=== PATIENT | female | born 1950 | race Caucasian/White ===

== ENCOUNTER 2018-09-16 21:27 | Emergency (ER) | payer MEDICARE, OTHER ==
[2018-09-16] MEDS ORDERED: ASPIRIN 81 MG TABLET, CHEWABLE PO ONE (21:43)
--- NOTE | 2018-09-16 21:45 | ER Document Report ---
ED Medical Screen (RME) - General TRAVEL OUTSIDE OF THE [place] IN LAST 30 DAYS: No <SANYA AGUILERA - Last Filed: 09/16/18 21:43> <RAUL RAMIREZ - Last Filed: 09/16/18 23:37> - General Chief Complaint: Chest Pain Stated Complaint: CHEST PAIN Time Seen by Provider: 09/16/18 21:43 Notes: After dinner started with epigastric pain that moves into her chest. Dull pain now in the center of her chest, h/o a-fib and GERD. Unsure if this is reflux or "my heart." I have greeted and performed a rapid initial assessment of this patient. A comprehensive ED assessment and evaluation of the patient, analysis of test results and completion of the medical decision making process will be conducted by additional ED providers. (SANYA AGUILERA) - Vital signs Vitals: Temp Pulse Resp BP Pulse Ox 97.6 F 61 19 183/83 H 98 09/16/18 21:43 09/16/18 21:43 09/16/18 21:43 09/16/18 21:43 09/16/18 21:43 Course - Laboratory Result Diagrams: 09/16/18 21:55 09/16/18 21:55 <RAUL RAMIREZ - Last Filed: 09/16/18 23:37> - Vital Signs Vital signs: Temp Pulse Resp BP Pulse Ox 97.6 F 61 18 168/94 H 95 09/16/18 21:43 09/16/18 21:43 09/16/18 22:32 09/16/18 22:32 09/16/18 22:32 - Laboratory Laboratory results interpreted by me: 09/16/18 09/16/18 21:55 21:55 Hgb 11.9 L MCV 79 L MCH 26.1 L RDW 16.3 H Glucose 117 H - EKG Interpretation by Me Additional EKG results interpreted by me: 09/16/18 22:02 09/16/18 23:37 (RAUL RAMIREZ)
[2018-09-16 22:19] LABS: ABSOLUTE EOSINOPHILS # (AUTO) 0.2 10^3/uL (0.0-0.6); ABSOLUTE LYMPHOCYTES (AUTO) 1.7 10^3/uL (0.5-4.7); ABSOLUTE MONOCYTES (AUTO) 0.5 10^3/uL (0.1-1.4); ABSOLUTE NEUT (AUTO) 2.7 10^3/uL (1.7-8.2); BASOPHILS % (AUTO) 0.8 % (0-2); HEMOGLOBIN 11.9 g/dL (12.0-15.5); LYMPHOCYTES % (AUTO) 33.2 % (13-45); MEAN CORPUSCULAR HEMOGLOBIN 26.1 pg (27.0-33.4); MEAN CORPUSCULAR VOLUME 79 fl (80-97); MONOCYTES % (AUTO) 9.2 % (3-13); PLATELET COUNT 200 10^3/uL (150-450); RED BLOOD COUNT 4.55 10^6/uL (3.72-5.28); RED CELL DISTRIBUTION WIDTH 16.3 % (11.5-14.0); SEGMENTED NEUTROPHILS % (AUTO) 52.8 % (42-78); TOTAL CELLS COUNTED % (AUTO) 100 %; WHITE BLOOD COUNT 5.2 10^3/uL (4.0-10.5)
[2018-09-16 22:27] LABS: INTERNATIONAL RATION (INR) 1.04; PROTHROMBIN TIME 14.2 SEC (11.4-15.4)
[2018-09-16 22:35] LABS: ALANINE AMINOTRANSFERASE 27 U/L (9-52); ALBUMIN 3.8 g/dL (3.5-5.0); ALKALINE PHOSPHATASE 80 U/L (38-126); ANION GAP 9 (5-19); ASPARTATE AMINO TRANSFERASE 32 U/L (14-36); BILIRUBIN,DIRECT 0.2 mg/dL (0.0-0.4); BILIRUBIN,TOTAL 0.5 mg/dL (0.2-1.3); BLOOD UREA NITROGEN 13 mg/dL (7-20); CALCIUM 9.3 mg/dL (8.4-10.2); CARBON DIOXIDE 29 mmol/L (22-30); CHLORIDE 100 mmol/L (98-107); CREATINE KINASE 82 U/L (30-135); GLUCOSE 117 mg/dL (75-110); LIPASE 77.8 U/L (23-300); POTASSIUM 3.9 mmol/L (3.6-5.0); SODIUM 137.5 mmol/L (137-145); TOTAL PROTEIN 6.8 g/dL (6.3-8.2)
[2018-09-16 22:50] LABS: CREATINE KINASE MB 1.49 ng/mL (<4.55)
--- NOTE | 2018-09-16 22:55 | RADIOLOGY REPORT (SQ) ---
EXAM DESCRIPTION: XR CHEST 1 VIEW COMPLETED DATE/TME: 09/16/2018 21:43 CLINICAL HISTORY: 67 years Female, CP COMPARISON: None. NUMBER OF VIEWS/TECHNIQUE: 1/AP FINDINGS: Adequate lung volume, pulmonary vascular congestion, normal cardiac silhouette, and intact bony thorax. Atherosclerotic vascular disease. Upper abdominal clips. IMPRESSION: Pulmonary vascular congestion.
[2018-09-16 22:58] LABS: TROPONIN I < 0.012 ng/mL
--- NOTE | 2018-09-16 23:39 | ER Document Report ---
ED General - General Chief Complaint: Chest Pain Stated Complaint: CHEST PAIN Time Seen by Provider: 09/16/18 21:43 Notes: Patient 67-year-old female who presents with complaint of fullness and pressure type feeling in her epigastric region that occurred while she was eating spaghetti. She said she felt as if she had a belch and felt as if she could vomit and it would get rid of the pressure. She does have a history of gastric bypass surgery in the past. She said she came here and eventually the pain went away. She is currently pain-free and feels well. She does have a history atrial fibrillation. She is underwent several ablations. She also had a watchman procedure performed. She is no longer on anticoagulation. She did have a negative cardiac cath 2 years ago. No other complaints at this time. TRAVEL OUTSIDE OF THE [place] IN LAST 30 DAYS: No - Related Data Allergies/Adverse Reactions: cephalexin [From Keflex] Allergy (Verified 09/17/18 02:01) codeine Allergy (Verified 09/17/18 02:01) Penicillins Allergy (Verified 09/17/18 02:01) Sulfa (Sulfonamide Antibiotics) Allergy (Verified 09/17/18 02:01) Past Medical History - Social History Smoking Status: Never Smoker Frequency of alcohol use: None Drug Abuse: None Family History: Reviewed & Not Pertinent Patient has suicidal ideation: No Patient has homicidal ideation: No - Past Medical History Cardiac Medical History: Reports: Hx Atrial Fibrillation, Hx Hypertension Renal/ Medical History: Denies: Hx Peritoneal Dialysis GI Medical History: Reports: Hx Gastroesophageal Reflux Disease Musculoskeletal Medical History: Reports Hx Arthritis Psychiatric Medical History: Reports: Hx Depression Past Surgical History: Reports: Hx Breast Surgery - reduction, Hx Cardiac Catheterization - ablation x3; umbrella filter, Hx Cardiac Surgery, Hx Cholecystectomy, Hx Hysterectomy, Hx Orthopedic Surgery - bilat carpel tunnel; bilat knee replacement Review of Systems - Review of Systems Notes: My Normal Review Basic REVIEW OF SYSTEMS: CONSTITUTIONAL : Denies fever, chills, or sweats. Denies recent illness. CARDIOVASCULAR: Pressure over lower substernal and epigastric region. RESPIRATORY: Denies cough, cold, or chest congestion. Denies shortness of breath, difficulty breathing, or wheezing. GASTROINTESTINAL: Short over epigastric region.. Denies nausea, vomiting, or diarrhea. MUSCULOSKELETAL: Denies neck or back pain or joint pain or swelling. SKIN: Denies rash or skin lesions. NEUROLOGICAL: Denies altered mental status or loss of consciousness. Denies headache. Denies weakness or paralysis or loss of use of either side. Denies problems with gait or speech. Denies sensory or motor loss. ALL OTHER SYSTEMS REVIEWED AND NEGATIVE. Physical Exam - Vital signs Vitals: Temp Pulse Resp BP Pulse Ox 97.6 F 61 19 183/83 H 98 09/16/18 21:43 09/16/18 21:43 09/16/18 21:43 09/16/18 21:43 09/16/18 21:43 - Notes Notes: General Appearance: Well nourished, alert, cooperative, no acute distress, no obvious discomfort. Well-appearing. Vitals: reviewed, See vital signs table. Eyes: PERRL, EOMI, Conjuctiva clear Mouth: No decreasd moisture Lungs: No wheezing, No rales, No rhonci, No accessory muscle use, good air exchange bilaterally. Heart: Normal rate, Regular rythm, No murmur, no rub Abdomen: Normal BS, soft, No rigidity, No abdominal tenderness, No guarding, no rebound, Extremities: good pulses in all extremities, no swelling or tenderness in the extremities, no edema. Skin: warm, dry, appropriate color, no rash Neuro: speech clear, oriented x 3, normal affect, responds appropriately to questions. Course - Re-evaluation Re-evalutation: 09/17/18 02:36 Patient's history and pain sounds very consistent with that of indigestion. Despite this I still feel it is appropriate to do a workup looking her heart being that she does have T wave inversions on her EKG I do not have an old one to compare to. These inversions could be related to the multiple ablations that she has had performed on her heart. Patient is currently pain-free and a repeat EKG and is not changed whatsoever. I did troponin and delta troponin this is negative as well. Patient had negative cardiac cath 2 years ago. At this time I feel the patient is safe to be discharged home. I informed her to avoid spicy foods and fatty foods. She is hypertensive at did not have any of her nighttime antihypertensive medications. She did take her metoprolol which has started to bring down her blood pressure. She also takes Micardis. I did not have it here in the patient says that she will just take it as soon as she gets home. Since that she does have some Protonix. I encouraged her to start taking that. I encouraged her to avoid all spicy foods, fatty foods, and fried foods. I informed her that workup currently is negative looking her heart however she should still have a very low threshold to return to ER if she has any recurrent pain, difficulty breathing, or feels unwell. Patient agrees with plan and will be discharged home. Dictation of this chart was performed using voice recognition software; therefore, there may be some unintended grammatical errors. - Vital Signs Vital signs: Temp Pulse Resp BP Pulse Ox 97.6 F 61 19 188/92 H 97 09/16/18 21:43 09/16/18 21:43 09/17/18 02:01 09/17/18 02:01 09/17/18 02:01 - Laboratory Result Diagrams: 09/16/18 21:55 09/16/18 21:55 Laboratory results interpreted by me: 09/16/18 09/16/18 21:55 21:55 Hgb 11.9 L MCV 79 L MCH 26.1 L RDW 16.3 H Glucose 117 H - EKG Interpretation by Me Additional EKG results interpreted by me: 09/16/18 23:38 EKG is reviewed and interpreted by me. EKG shows sinus rhythm with a rate of [address] segment elevation. Patient has large T wave inversions in leads I and aVL. Unclear if this is new or old as we do not have an old EKG for comparison. SC interval, QRS duration, QT intervals are within normal range. EKG #2 is reviewed and interpreted by me. EKG shows sinus rhythm with a rate of 56 bpm. No changes in the T wave inversions in leads I and aVL in comparison to the EKG performed earlier today. Discharge - Discharge Clinical Impression: Epigastric abdominal pain Chest pain Qualifiers: Chest pain type: unspecified Qualified Code(s): R07.9 - Chest pain, unspecified Condition: Good Disposition: HOME, SELF-CARE Additional Instructions: Please follow-up closely with your primary care doctor this week for reevaluation. Please return to ER immediately if you have any recurrence of chest pain or upper abdominal pain, any difficulty breathing, or feel unwell. Avoid fried foods, spicy foods, or fatty foods. Please take your Protonix every day.
[2018-09-17 03:05] VITALS: BP 150/69
--- NOTE | 2018-09-17 09:49 | EKG REPORT ---
SEVERITY:- ABNORMAL ECG - SINUS RHYTHM LVH WITH SECONDARY REPOLARIZATION ABNORMALITY INFERIOR INFARCT, ? AGE CONSIDER ANTERIOR INFARCT : Confirmed by: Nevin Adams MD 17-Sep-2018 09:49:32
--- NOTE | 2018-09-17 09:49 | EKG REPORT ---
SEVERITY:- ABNORMAL ECG - SINUS RHYTHM LAD, CONSIDER LAFB LVH WITH SECONDARY REPOLARIZATION ABNORMALITY CONSIDER ANTERIOR INFARCT : Confirmed by: Nevin Adams MD 17-Sep-2018 09:48:55
== END 2018-09-17 03:09 | disposition home or self-care (01) ==
LOC: ER 21:27
DX: R07.9 Chest pain, unspecified (principal); R10.13 Epigastric pain; I10 Essential (primary) hypertension; I48.91 Unspecified atrial fibrillation; Z88.3 Allergy status to other anti-infective agents; Z88.0 Allergy status to penicillin; Z88.2 Allergy status to sulfonamides; Z98.84 Bariatric surgery status; Z90.49 Acquired absence of other specified parts of digestive tract; Z90.710 Acquired absence of both cervix and uterus; Z96.653 Presence of artificial knee joint, bilateral
CPT/HCPCS: 36415; 71045; 80053; 82550; 82553; 83690; 84484; 85025; 85610; 93005; 93010; 99285

== ENCOUNTER 2019-04-18 02:34 | Emergency (ER) | payer MEDICARE, OTHER ==
--- NOTE | 2019-04-18 04:12 | ER Document Report ---
HPI - HPI Time Seen by Provider: 04/18/19 04:08 Pain Level: 5 Context: Patient is a 68-year-old female that comes emergency department for chief complaint of lower back pain and opiate withdrawals. She states that she followed with local pain management, she states that she had a of her little brother, became depressed, took too many of her pain medications, her contract was terminated and she was prescribed small amounts of opiates and she was supposed to be tapering herself off for 2 weeks. She states that her last dose was 2 days ago and today she had nausea, vomiting, congestion, and generalized body aches. She also reports the chronic back pain. She denies any new pain, fever, numbness. She was taking morphine every 12 and oxymorphone. - REPRODUCTIVE Reproductive: DENIES: : Past Medical History - General Information source: Patient - Social History Smoking Status: Never Smoker Chew tobacco use (# tins/day): No Frequency of alcohol use: Occasional Drug Abuse: None Lives with: Family Family History: Reviewed & Not Pertinent Patient has suicidal ideation: No Patient has homicidal ideation: No - Past Medical History Cardiac Medical History: Reports: Hx Atrial Fibrillation, Hx Hypertension Renal/ Medical History: Denies: Hx Peritoneal Dialysis GI Medical History: Reports: Hx Gastroesophageal Reflux Disease Musculoskeletal Medical History: Reports Hx Arthritis Psychiatric Medical History: Reports: Hx Depression Past Surgical History: Reports: Hx Breast Surgery - reduction, Hx Cardiac Catheterization - ablation x3; umbrella filter, Hx Cardiac Surgery, Hx Cholecystectomy, Hx Hysterectomy, Hx Orthopedic Surgery - bilat carpel tunnel; bilat knee replacement - Immunizations Immunizations up to date: Yes Hx Diphtheria, Pertussis, Tetanus Vaccination: Yes Vertical Provider Document - CONSTITUTIONAL General Appearance: WD/WN, No Apparent Distress - INFECTION CONTROL TRAVEL OUTSIDE OF THE [place] IN LAST 30 DAYS: No - HEENT HEENT: Atraumatic, Normocephalic - NECK Neck: Normal Inspection - RESPIRATORY Respiratory: Breath Sounds Normal, No Respiratory Distress - CARDIOVASCULAR Cardiovascular: Regular Rate, Regular Rhythm - GI/ABDOMEN Gastrointestinal: Abdomen Soft, Abdomen Non-Tender - BACK Back: negative: Normal Inspection - Minimal tenderness along the general lumbar back. No midline tenderness, no saddle anesthesia, no signs of trauma. Normal upper and lower extremity range of motion, normal strength, normal distal neurovascular exam. - MUSCULOSKELETAL/EXTREMETIES Musculoskeletal/Extremeties: CARLITOS, FROM, Non-Tender Course - Re-evaluation Re-evalutation: Patient is irritable and restless but she does not have tachycardia, fever, or severe distress. Physical exam is actually quite unremarkable, she has no neurological deficits. Patient is requesting pain medicine and stating she was to follow-up with pain management. I discussed with her that I cannot provide her with opiates but we can provide her with buprenorphine dose for here in the weekend with port follow-up for possible Suboxone and buprenorphine management versus her going back to pain management at a future date. Patient states she is very agreeable with this plan, she just wants the withdrawal symptoms to go away. I did discuss this with Dr. Steel first. I discussed return precautions at length as well. Stable at time of discharge. - Vital Signs Vital signs: Temp Pulse Resp BP Pulse Ox 98.3 F 61 18 171/79 H 99 04/18/19 02:55 04/18/19 02:55 04/18/19 02:55 04/18/19 02:55 04/18/19 02:55 Discharge - Discharge Clinical Impression: Opiate withdrawal Chronic back pain Qualifiers: Back pain location: low back pain Back pain laterality: unspecified Sciatica presence: unspecified whether sciatica present Qualified Code(s): M54.5 - Low back pain Condition: Stable Disposition: HOME, SELF-CARE Additional Instructions: You have been given a dose of buprenorphine for the opiate withdrawals, take the second dose of buprenorphine on Sunday, follow-up on Sunday with the referral for additional management. Return if you worsen including uncontrolled vomiting, fever, numbness, or something is not right. Forms: Elevated Blood Pressure Referrals: [facility] [Provider Group] - 04/21/19
[2019-04-18] MEDS ORDERED: BUPRENORPHINE HCL 2 MG SUBLINGUAL TABLET SL ONE (04:21)
[2019-04-18 04:48] VITALS: BP 174/93
== END 2019-04-18 04:46 | disposition home or self-care (01) ==
LOC: ER 02:34
DX: F11.23 Opioid dependence with withdrawal (principal); G89.29 Other chronic pain; M54.5 Low back pain; R11.2 Nausea with vomiting, unspecified; R45.1 Restlessness and agitation; R45.4 Irritability and anger; I10 Essential (primary) hypertension; Z63.4 Disappearance and death of family member
CPT/HCPCS: 99283; A9270; J0571

== ENCOUNTER 2019-04-25 13:36 | Emergency (ER) | payer MEDICARE, OTHER ==
--- NOTE | 2019-04-25 14:24 | ER Document Report ---
ED Medical Screen (RME) - General Chief Complaint: Back Pain Stated Complaint: BACK PAIN Time Seen by Provider: 04/25/19 14:21 Mode of Arrival: Ambulatory Information source: Patient Notes: 68-year-old female presents to ED for complaint of back pain. She is going through withdrawals from opiates. She states that when she was discharged from here she was sent for place [place] for her opiate withdrawal but they would not see her. She states the reason she is having the pain in her back is because she is getting off of the opiates. Patient is alert oriented respirations regular nonlabored speaking in full sentences. States she went to pain management and they put her on opiates and now she is trying to get off the opiates but she still has pain. I have greeted and performed a rapid initial assessment of this patient. A comprehensive ED assessment and evaluation of the patient, analysis of test results and completion of medical decision making process will be conducted by an additional ED providers. TRAVEL OUTSIDE OF THE [place] IN LAST 30 DAYS: No - Related Data Allergies/Adverse Reactions: cephalexin [From Keflex] Allergy (Verified 09/17/18 02:01) codeine Allergy (Verified 09/17/18 02:01) Penicillins Allergy (Verified 09/17/18 02:01) Sulfa (Sulfonamide Antibiotics) Allergy (Verified 09/17/18 02:01) Past Medical History - Past Medical History Cardiac Medical History: Reports: Hx Atrial Fibrillation, Hx Hypertension Renal/ Medical History: Denies: Hx Peritoneal Dialysis GI Medical History: Reports: Hx Gastroesophageal Reflux Disease Musculoskeltal Medical History: Reports Hx Arthritis Psychiatric Medical History: Reports: Hx Depression Past Surgical History: Reports: Hx Breast Surgery - reduction, Hx Cardiac Catheterization - ablation x3; umbrella filter, Hx Cardiac Surgery, Hx Cholecystectomy, Hx Hysterectomy, Hx Orthopedic Surgery - bilat carpel tunnel; bilat knee replacement - Immunizations Immunizations up to date: Yes Hx Diphtheria, Pertussis, Tetanus Vaccination: Yes Physical Exam - Vital signs Vitals: Temp Pulse Resp BP Pulse Ox 97.8 F 67 18 173/77 H 99 04/25/19 13:50 04/25/19 13:50 04/25/19 13:50 04/25/19 13:50 04/25/19 13:50 Course - Vital Signs Vital signs: Temp Pulse Resp BP Pulse Ox 97.8 F 67 18 173/77 H 99 04/25/19 13:50 04/25/19 13:50 04/25/19 13:50 04/25/19 13:50 04/25/19 13:50
[2019-04-25 15:01] LABS: APPEARANCE,URINE SLIGHTLY-CLOUDY; BILIRUBIN,URINE NEGATIVE (NEGATIVE); COLOR,URINE YELLOW; GLUCOSE, URINE NEGATIVE (NEGATIVE); KETONES,URINE NEGATIVE (NEGATIVE); PROTEIN,URINE NEGATIVE (NEGATIVE); UROBILINOGEN,URINE NEGATIVE mg/dL (<2.0)
--- NOTE | 2019-04-25 17:33 | ER Document Report ---
ED General - General Chief Complaint: Back Pain Stated Complaint: BACK PAIN Time Seen by Provider: 04/25/19 14:21 Mode of Arrival: Ambulatory Notes: Patient is a 68-year-old female with chronic neck and back pain. Patient states that she attempted to call port to go on Suboxone to get off her chronic opiate medication, but was unable to make an told that they could not help her there. Patient was taking oxymorphone and morphine. Patient denies any fever, numbness, tingling, or any other symptoms. She states that she has been urinating a lot more, but states that she has been drinking a lot more fluids. Patient denies any bladder or bowel dysfunction, paresthesias, weakness, or IV drug abuse. TRAVEL OUTSIDE OF THE [place] IN LAST 30 DAYS: No - Related Data Allergies/Adverse Reactions: cephalexin [From Keflex] Allergy (Verified 09/17/18 02:01) codeine Allergy (Verified 09/17/18 02:01) Penicillins Allergy (Verified 09/17/18 02:01) Sulfa (Sulfonamide Antibiotics) Allergy (Verified 09/17/18 02:01) Past Medical History - General Information source: Patient - Social History Smoking Status: Never Smoker Chew tobacco use (# tins/day): No Frequency of alcohol use: Social Drug Abuse: None Family History: Reviewed & Not Pertinent Patient has suicidal ideation: No Patient has homicidal ideation: No - Past Medical History Cardiac Medical History: Reports: Hx Atrial Fibrillation, Hx Hypertension Renal/ Medical History: Denies: Hx Peritoneal Dialysis GI Medical History: Reports: Hx Gastroesophageal Reflux Disease Musculoskeletal Medical History: Reports Hx Arthritis Psychiatric Medical History: Reports: Hx Depression Past Surgical History: Reports: Hx Breast Surgery - reduction, Hx Cardiac Catheterization - ablation x3; umbrella filter, Hx Cardiac Surgery, Hx Cholecystectomy, Hx Hysterectomy, Hx Orthopedic Surgery - bilat carpel tunnel; bilat knee replacement - Immunizations Immunizations up to date: Yes Hx Diphtheria, Pertussis, Tetanus Vaccination: Yes Review of Systems - Review of Systems Notes: REVIEW OF SYSTEMS: CONSTITUTIONAL : Denies recent illness. Denies recent unintentional weight loss. Denies fever, chills, or sweats. EENT: Denies eye, ear, throat, or mouth pain, discharge, or symptoms. Denies nasal or sinus congestion. CARDIOVASCULAR: Denies chest pain. RESPIRATORY: Denies shortness of breath, cough, congestion, difficulty breathing, or wheezing. GASTROINTESTINAL: Denies nausea, vomiting, and diarrhea. Denies abdominal pain. Denies constipation. GENITOURINARY: Denies difficulty urinating, burning, blood in urine, urgency or frequency. MUSCULOSKELETAL: See HPI. Denies joint pain or swelling. SKIN: Denies rash, itchiness, or lesions HEMATOLOGIC : Denies easy bruising or bleeding. LYMPHATIC: Denies swollen, painful, enlarged glands. NEUROLOGICAL: Denies no numbness or tingling denies weakness. Denies headache. Denies altered mental status. Denies alteration in speech. PSYCHIATRIC: See HPI. All other systems reviewed and negative. Physical Exam - Vital signs Vitals: Temp Pulse Resp BP Pulse Ox 97.8 F 67 18 173/77 H 99 04/25/19 13:50 04/25/19 13:50 04/25/19 13:50 04/25/19 13:50 04/25/19 13:50 - Notes Notes: PHYSICAL EXAMINATION: GENERAL: Appears well, healthy, well-nourished, no acute distress. HEAD: Normocephalic, atraumatic. EYES: PERRL, conjunctiva normal, all extraocular movements intact, sclera nonicteric ENT: Moist mucous membranes. NECK: Supple, no noticeable swelling, redness, rash. Normal range of motion. LUNGS: Equal breath sounds bilaterally and clear to auscultation. No wheezes rales or rhonchi. CARDIOVASCULAR: S1-S2, regular rate, regular rhythm. Radial pulses 2+, normal. ABDOMEN: Normoactive bowel sounds. Soft, nontender, no guarding, no rebound tenderness, and no masses palpated. EXTREMITIES: Normal strength and range of motion, no pitting or edema. No cyanosis. NEUROLOGICAL: Moves all extremities upon command. Strength 5/5 in all extremities. PSYCH: Normal mood, normal affect. SKIN: Warm, dry. No rash, lesions, ulcerations noted. Normal skin turgor. BACK: Tenderness to mid lower abdomen. No CVA tenderness noted. Course - Re-evaluation Re-evalutation: 04/25/19 Patient and I discussed with her that we can repeat the same regimen she had when she was here in the emergency department last time. Patient states that her pain is the same pain that she has had. Denies any new weakness, loss of bladder or bowel function, numbness tingling, or IV drug abuse. She will receive a dose of Buprenorpine here in the emergency department and have some to go home with. Patient states that her last dose of her oxymorphone was on Sunday. Urinalysis shows only trace leukocytes. Urine culture was sent. Follow-up precautions were given. Verbal discharge instructions were given to the patient. They verbalized understanding. They are stable for discharge. - Vital Signs Vital signs: Temp Pulse Resp BP Pulse Ox 97.6 F 66 16 196/92 H 98 04/25/19 17:53 04/25/19 17:53 04/25/19 17:53 04/25/19 17:53 04/25/19 17:53 - Laboratory Laboratory results interpreted by me: 04/25/19 14:32 Leukocyte Esterase Rfl TRACE H Discharge - Discharge Clinical Impression: Opiate withdrawal, Chronic back pain Condition: Stable Disposition: HOME, SELF-CARE Additional Instructions: You have been given a dose of buprenorphine for the opiate withdrawals, take the second dose of buprenorphine on Sunday, follow-up on Sunday with the referral for additional management. Return if you worsen including uncontrolled vomiting, fever, numbness, or something is not right. Forms: Elevated Blood Pressure
[2019-04-25] MEDS ORDERED: BUPRENORPHINE HCL 2 MG SUBLINGUAL TABLET SL ONE ×2 (17:35→17:36)
[2019-04-25 18:00] VITALS: BP 196/92
== END 2019-04-25 18:00 | disposition home or self-care (01) ==
LOC: ER 13:36
DX: G89.29 Other chronic pain (principal); M54.9 Dorsalgia, unspecified; M54.2 Cervicalgia; F11.23 Opioid dependence with withdrawal; R10.819 Abdominal tenderness, unspecified site; I10 Essential (primary) hypertension; Z88.1 Allergy status to other antibiotic agents; Z88.5 Allergy status to narcotic agent; Z88.0 Allergy status to penicillin; Z88.2 Allergy status to sulfonamides
CPT/HCPCS: 99283; 87086; 81001; A9270; J0571

== ENCOUNTER 2019-06-10 16:38 | Emergency (ER) | payer MEDICARE, OTHER ==
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
[2019-06-10] MEDS ORDERED: DIPH/PERTUSS(ACELL)/TETANUS VAC/PF 0.5 ML SYR (>=10YO) IM ONE (18:17)
[2019-06-10 18:39] VITALS: BP 182/94
== END 2019-06-10 19:38 | disposition home or self-care (01) ==
LOC: ER 16:38
DX: H10.89 Other conjunctivitis (principal); H11.32 Conjunctival hemorrhage, left eye; I10 Essential (primary) hypertension; Z23 Encounter for immunization; Z96.60 Presence of unspecified orthopedic joint implant; Z90.49 Acquired absence of other specified parts of digestive tract; Z90.710 Acquired absence of both cervix and uterus; I48.91 Unspecified atrial fibrillation
CPT/HCPCS: 90471; 90715; 99283

== ENCOUNTER 2019-11-20 06:58 | Day surgery (SDC) | payer MEDICARE, OTHER ==
[~2019-11-20 06:58] MED LIST: BUPIVACAINE HCL 0.75% INJ/PF (7.5 MG/1 ML) 10 ML SDV OD PRN; DORZOLAMIDE HCL 2%/TIMOLOL MALEAT 0.5% OPH SOLN 10 ML OD PRN; KETOROLAC TROMETHAMINE 0.45% 4 DROP/0.4 ML DROPERETTE OD PRN; LIDOCAINE 4% INJ/PF (40 MG/ML) 5 ML AMPUL OD PRN
[2019-11-20] MEDS: BESIFLOXACIN HCL 0.6% OPH SUSP 5 ML BOTTLE OD PRN ×2 (07:10→07:20)
[2019-11-20] MEDS: TETRACAINE HCL 0.5% OPH SOLN 4 ML OD PRN ×3 (07:10→07:57)
[2019-11-20] MEDS: TROPICAMIDE 1% OPH SOLN 15 ML OD PRN ×3 (07:10→07:30)
[2019-11-20] MEDS: CYCLOPENTOLATE 0.2%/PHENYLEPHRINE 1% OPH SOLN 2 ML OD PRN ×3 (07:10→07:30)
[2019-11-20] MEDS ORDERED: CHONDR SU A NA/HYALUR INTRAOC KIT (SURGICARE) ONE (07:15)
[2019-11-20] MEDS ORDERED: LIDOCAINE 1% INJ-PF (10 MG/ML) 30 ML SDV ONE (07:15)
[2019-11-20] MEDS ORDERED: EPINEPHRINE INJ/PF 1 MG/1 ML AMPULE ONE (07:15)
[2019-11-20] MEDS ORDERED: MIDAZOLAM 2 MG/2 ML INJ ONE (07:27)
[2019-11-20] MEDS ORDERED: FENTANYL CITRATE INJ/PF 100 MCG/2 ML AMPUL ONE (07:27)
--- NOTE | 2019-11-20 08:32 | Operative Report ---
Operative Report-[facility] Operative Report: DATE OF SURGERY: 11/20/2019 PREOPERATIVE DIAGNOSIS: CATARACT, RIGHT EYE. POSTOPERATIVE DIAGNOSIS: CATARACT, RIGHT EYE. PROCEDURE PERFORMED: PHACOEMULSIFICATION WITH POSTERIOR CHAMBER INTRAOCULAR LENS, RIGHT EYE. Intraocular Lens Model : SN60WF 20.5 Total Phaco Time: 3.4 CDE SURGEON: TARI GARVEY MD ANESTHESIA: TOPICAL WITH MAC. INDICATIONS FOR SURGERY: []. PROCEDURE: The patient was brought to the Operating Room and placed on the operative table. Following tetracaine drops, topical anesthesia was administered. This consisted of instrument wipe pledgets soaked in a solution of 4% Xylocaine mixed with 0.75% Marcaine in a 1:2 ratio. A 2 x 1 cm pledget was placed in the superior fornix. A 1 x 1 cm pledget was placed in the inferior fornix. The eye was patched shut for 5 minutes. The patch was removed. The eye was sterilely prepped and draped in the usual manner. Lid speculum was placed in the eye. The pledgets were removed. 4-0 black silk sutures were placed around the superior and the inferior rectus muscles to be used as traction. A conjunctival peritomy was made at the 10 o'clock position. Hemostasis was obtained with bipolar cautery. A posterior limbal groove was created using a crescent knife and dissected anteriorly towards the cornea. A sharp point blade was used to create a paracentesis site at the 2 o'clock position. 0.2 cc non preserved Lidocaine was injected into the anterior chamber. A 2.4 mm keratome was used to enter the anterior chamber through the groove. Viscoelastic was injected into the anterior chamber. An anterior capsulotomy was performed using Utrata forceps in a capsulorrhexis fashion. Hydrodissection and hydrodelineation were performed. Phacoemulsification was performed in [id number] technique. Following this, the I/A unit was used to remove residual cortex. Viscoelastic was injected into the capsular bag. The Intraocular lens was placed in the capsular bag. The I/A unit was used to remove residual viscoelastic. The wound was seen to be watertight under high and low pressure, and no sutures were placed. The intraocular lens was well centered. The pressure was adjusted in the eye to normal pressure. The 4-0 black silk sutures and lid speculum were removed. The eye was shielded after Besivance. prednisolone, and Cosopt drops were placed. The patient tolerated the procedure well and was sent to the Recovery Room in good condition.
== END 2019-11-20 09:13 | disposition home or self-care (01) ==
LOC: SC 06:58
PROVIDERS: ATTEND Ophthalmology
DX: H25.813 Combined forms of age-related cataract, bilateral (principal); I10 Essential (primary) hypertension; E03.9 Hypothyroidism, unspecified; Z86.73 Personal history of transient ischemic attack (TIA), and cerebral infarction without residual deficits; I20.9 Angina pectoris, unspecified; Z85.528 Personal history of other malignant neoplasm of kidney; M79.7 Fibromyalgia
CPT/HCPCS: 66984; 00142; V2632; J2250; J3490 ×5; A9270; J0171; J3010; 142

== ENCOUNTER 2019-12-09 08:53 | Day surgery (SDC) | payer MEDICARE, OTHER ==
[~2019-12-09 08:53] MED LIST changes: -BUPIVACAINE HCL 0.75% INJ/PF (7.5 MG/1 ML) 10 ML SDV OD PRN; +BUPIVACAINE HCL 0.75% INJ/PF (7.5 MG/1 ML) 10 ML SDV OS PRN; -DORZOLAMIDE HCL 2%/TIMOLOL MALEAT 0.5% OPH SOLN 10 ML OD PRN; +FENTANYL CITRATE INJ/PF 100 MCG/2 ML AMPUL ONE; -KETOROLAC TROMETHAMINE 0.45% 4 DROP/0.4 ML DROPERETTE OD PRN; +KETOROLAC TROMETHAMINE 0.45% 4 DROP/0.4 ML DROPERETTE OS PRN; -LIDOCAINE 4% INJ/PF (40 MG/ML) 5 ML AMPUL OD PRN; +LIDOCAINE 4% INJ/PF (40 MG/ML) 5 ML AMPUL OS PRN; +MIDAZOLAM 2 MG/2 ML INJ ONE
[2019-12-09] MEDS: CYCLOPENTOLATE 0.2%/PHENYLEPHRINE 1% OPH SOLN 2 ML OS PRN ×3 (09:07→09:27)
[2019-12-09] MEDS: TROPICAMIDE 1% OPH SOLN 15 ML OS PRN ×3 (09:07→09:27)
[2019-12-09] MEDS: BESIFLOXACIN HCL 0.6% OPH SUSP 5 ML BOTTLE OS PRN ×4 (09:07→09:58)
[2019-12-09] MEDS: TETRACAINE HCL 0.5% OPH SOLN 4 ML OS PRN ×3 (09:08→09:35)
[2019-12-09] MEDS: EPINEPHRINE INJ/PF 1 MG/1 ML AMPULE ONE ×2 (09:46)
[2019-12-09] MEDS: LIDOCAINE 1% INJ-PF (10 MG/ML) 30 ML SDV ONE ×2 (09:46)
[2019-12-09] MEDS: CHONDR SU A NA/HYALUR INTRAOC KIT (SURGICARE) ONE ×2 (09:46)
[2019-12-09] MEDS: DORZOLAMIDE HCL 2%/TIMOLOL MALEAT 0.5% OPH SOLN 10 ML OS PRN ×2 (09:58)
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
== END 2019-12-09 10:32 | disposition home or self-care (01) ==
LOC: SC 08:53
PROVIDERS: ATTEND Ophthalmology
DX: H25.812 Combined forms of age-related cataract, left eye (principal); Z96.1 Presence of intraocular lens; I10 Essential (primary) hypertension; E03.9 Hypothyroidism, unspecified; R01.1 Cardiac murmur, unspecified; E66.9 Obesity, unspecified; Z88.0 Allergy status to penicillin; Z88.5 Allergy status to narcotic agent; Z88.2 Allergy status to sulfonamides; Z79.899 Other long term (current) drug therapy; Z85.528 Personal history of other malignant neoplasm of kidney
CPT/HCPCS: 66984; V2632; J2250; J3490 ×5; A9270; J0171; J3010; 142